=== PATIENT | female | born 1965 | race Hispanic/Latino ===

== ENCOUNTER 2020-08-13 12:44 | Emergency (ER) | payer OTHER ==
[~2020-08-13] VITALS: Ht 167.6 cm; Wt 77.1 kg
[2020-08-13 17:23] VITALS: BP 136/45
== END 2020-08-13 17:26 | disposition home or self-care (01) ==
LOC: ER 13:03
DX: R51.9 Headache, unspecified (principal); R42 Dizziness and giddiness; M54.5 Low back pain; V43.52XA Car driver injured in collision with other type car in traffic accident, initial encounter; Y92.488 Other paved roadways as the place of occurrence of the external cause
CPT/HCPCS: 70450; 72125; 72131; 99283